=== PATIENT | female | born 1930 | race Caucasian/White ===

== ENCOUNTER 2017-03-31 14:28 | Inpatient (IN) | payer OTHER, MEDICAID ==
[2017-03-31] MEDS ORDERED: NS 1,000 ML IV ONE (14:39)
[2017-03-31] MEDS ORDERED: METOCLOPRAMIDE 10 MG/2 ML VIAL IVP ONE (14:39)
--- NOTE | 2017-03-31 14:41 | EDPHY ---
H & P Source: Patient, RN/MD, Sander [employer] (Kazakh) Exam Limitations: Language barrier Time Seen by Provider: 03/31/17 14:40 HPI/ROS: HPI: This is a 87-year-old female who presents with Chief Complaint: Epigastric pain Location: Epigastric Quality: Pain Duration: Today Signs and Symptoms: no fever, + nausea, + vomiting, no hematemesis, no blood in stool, + abdominal bloating, no diarrhea, no back pain, no urinary symptoms, no testicular/groin pain, no indigestion, no chest pain, no shortness of breath Timing: Acute Severity: [id number] Context: Patient presents via EMS from [facility] with concerns of pancreatitis after starting Januvia. Patient complains of sudden onset of nausea and multiple episodes of vomiting starting this morning. She has not eaten today. She reports she has a history of appendectomy but denies cholecystectomy even though there is surgical incision chavez in a Humza position that is highly suspicious for cholecystectomy. Denies diarrhea/fever/ chills/dysphagia. Modifying Factors: Received 100 mcg of fentanyl on route via EMS with complete relief of pain Comment: ROS: see HPI Constitutional: No fever, no chills, no weight loss Eyes: No blurred vision Respiratory: No shortness of breath, no cough Cardiovascular: No chest pain, no palpitations Gastrointestinal: + nausea, + vomiting, no diarrhea, no hematemesis, no blood in stool Genitourinary: No dysuria, no blood in urine Extremities: No myalgias, no edema Neurologic: No weakness, no numbness Skin: No rashes, no petechiae Hematologic: No bruising, no bleeding MEDICAL/SURGICAL/SOCIAL HISTORY: Medical history: Diabetes, hyperlipidemia, depression. Surgical history: Appendectomy Social history: Resident of a halfway. CONSTITUTIONAL: Elderly female, awake and alert, no obvious distress HEENT: Atraumatic and normocephalic, PERRL, EOMI. Tympanic membranes clear. Oropharynx clear, missing dentition, no exudate and moist pink mucosa. Airway patent. No lymphadenopathy. No meningismus. Cardiovascular: Normal S1/S2, regular rate, regular rhythm, without murmur rub or gallop. PULMONARY/CHEST: Symmetrical and nontender. Clear to auscultation bilaterally. Good air movement. No accessory muscle usage. ABDOMEN: Soft, moderately distended, moderate epigastric tenderness, no rebound , + guarding, no peritoneal signs, no masses or organomegaly. No CVAT. Hyperactive bowel sounds heard throughout. EXTREMITIES: 2/2 pulses, no deformities, no clubbing, no cyanosis or edema. NEUROLOGICAL: no focal neuro deficits. GCS 15. SKIN: Warm and dry, no erythema. no rash. Good capillary refill. (Emmy Reilly) Constitutional: Initial Vital Signs Temperature (C) 36.4 C 03/31/17 14:35 Heart Rate 75 03/31/17 14:35 Respiratory Rate 16 03/31/17 14:35 Blood Pressure 178/87 H 03/31/17 14:35 O2 Sat (%) 97 03/31/17 14:35 O2 Delivery Mode Room Air Allergies/Adverse Reactions: No Known Allergies Allergy (Verified 03/31/17 16:19) Home Medications: Medication Instructions Recorded Acetaminophen [Tylenol 325mg (*)] 650 mg PO Q4H PRN 03/31/17 Ammonium Lactate [Amlactin] 1 each TP DAILY 03/31/17 Aspirin EC [Aspirin EC 81 mg (*)] 81 mg PO DAILY 03/31/17 Bisacodyl [Dulcolax] 10 mg RC DAILY PRN 03/31/17 Ergocalciferol [Vitamin D2 (*)] 50,000 unit PO Q30D 03/31/17 Hydrocodone/Acetaminophen [[place] 1 each PO Q4 PRN 03/31/17 5/325 (*)] Hydrocodone/Acetaminophen [[place] 2 each PO Q4H PRN 03/31/17 5/325 (*)] Insulin 70/30 Human [Novolin 70/30 15 unit SC BID 03/31/17 (*)] Lidocaine 5% Gel 1 bria TP Q8H PRN 03/31/17 Losartan Potassium [Cozaar] 100 mg PO HS 03/31/17 Mbx Soln;Maalox/Diphen/Lido 5 ml PO TID PRN 03/31/17 [Maalox/Diphenhydramine/Lido] Phenylephrine/Shk Lv/Mo/Pet,Wh 1 bria RC Q4H PRN 03/31/17 [Preparation H Oint] Prochlorperazine Maleate 25 mg GA Q12H PRN 03/31/17 [Compazine 25mg supp (*)] SITAGLIPTIN PHOSPHATE [Januvia 50 50 mg PO DAILY 03/31/17 mg] amLODIPine BESYLATE [Norvasc 5 mg 5 mg PO DAILY 03/31/17 (*)] guaiFENesin/DEXTROMETHORPHAN 10 ml PO Q4H PRN 03/31/17 [Tussin Dm Syrup] Medical Decision Making - Diagnostics EKG Interpretation: 12 lead EKG: Indication: Abdominal pain Rhythm: Irregular rhythm, rate of 60 beats per minute [place]: Normal Intervals: Normal QRS: Normal ST segments: Nonspecific changes INTERPRETATION: No acute ischemic changes, LVH The 12 lead EKG was interpreted by myself and with attending. (Emmy Reilly) 12 lead EKG is interpreted in Trace master View by emergency department physician. (Hillary Garcia) Imaging Results: Imaging Impressions Abdomen CT 03/31/17 14:39 Impression: 1. Complex mass left lower pelvis that probably originates from the mid sigmoid colon with subsequent moderate obstruction of large bowel. This mass also invades locally to involve the distal small bowel loops with partial SBO as well as extending to the left superior margin of the bladder with invasion. 2. Complex collection left lower pelvis posterior to the above described mass. There is a chance this mass could be ovarian in origin with local invasion of structures. 3. Incidental calcified uterine fibroids. 4. Diffuse thinning of the renal cortex bilaterally. There is moderate renal artery stenosis suspected bilaterally. Findings discussed with Emmy Reilly PAC at 16:54 hour, 03/31/2017. ED Course/Re-evaluation: Labs, IV fluids, IV medications, urinalysis, CT abdomen and pelvis scan, Gastroccult, EKG ordered High suspicion for obstruction at this point Given 1 L normal saline, IV morphine, IV Reglan 1535: Lactic acid is 5.7; blood cultures and normal saline 30 mL/kg 1614: Troponin 0.14; repeat EKG ordered shows irregular rhythm 1655: Called by radiologist for CT scan results that show mass either arising from the sigmoid colon or from the left ovary with proximal obstruction. Reassessed patient and she is sleeping soundly secondary to IV fentanyl given by EMS on route 1700: ED decision to consult for admission, spoke with General surgery, Dr. Smith, who kindly agrees to admit patient for further care and likely impending surgery. (Emmy Reilly) I have evaluated and participated in the management of this patient. My co- signature indicates that I have reviewed this chart and that I agree with the findings and the plan of care as documented. My personal history and physical findings include: Patient has received pain medication at the time of my evaluation. Patient complains of nausea, vomiting, and abdominal pain that began this morning. On examination her abdomen is diffusely tender and distended. Lungs are clear to auscultation anterolaterally. Heart has the an irregular rhythm. CT scan shows an obstructing mass. Dr. Smith he will see patient in the emergency department. (Hillary Garcia) Differential Diagnosis: Abdominal pain including but not limited to small bowel obstruction, cholecystitis, gastritis and urinary tract infection. (Emmy Reilly) Critical Care Time: I spent a total of 35 minutes of critical care time in obtaining history, performing a physical exam, bedside monitoring of interventions, collecting and interpreting tests and discussion with consultants but not including time spent performing procedures. Dx: Bowel obstruction, elevated troponin (Emmy Reilly) - Data Points Laboratory Results: Laboratory Results 03/31/17 15:19 03/31/17 15:19 03/31/17 03/31/17 03/31/17 15:19 15:19 15:19 WBC 12.65 10^3/uL H 10^3/uL (3.80-9.50) RBC 4.84 10^6/uL 10^6/uL (4.18-5.33) Hgb 13.6 g/dL g/dL (12.6-16.3) Hct 41.9 % % (38.0-47.0) MCV 86.6 fL fL (81.5-99.8) MCH 28.1 pg pg (27.9-34.1) MCHC 32.5 g/dL g/dL (32.4-36.7) RDW 16.6 % H % (11.5-15.2) Plt Count 302 10^3/uL 10^3/uL (150-400) MPV 10.8 fL fL (8.7-11.7) Neut % (Auto) 75.7 % H % (39.3-74.2) Lymph % (Auto) 11.9 % L % (15.0-45.0) [place] % (Auto) 10.8 % % (4.5-13.0) Eos % (Auto) 0.7 % % (0.6-7.6) Baso % (Auto) 0.2 % L % (0.3-1.7) Nucleat RBC Rel Count 0.0 % % (0.0-0.2) Absolute Neuts (auto) 9.57 10^3/uL H 10^3/uL (1.70-6.50) Absolute Lymphs (auto) 1.50 10^3/uL 10^3/uL (1.00-3.00) Absolute Monos (auto) 1.37 10^3/uL H 10^3/uL (0.30-0.80) Absolute Eos (auto) 0.09 10^3/uL 10^3/uL (0.03-0.40) Absolute Basos (auto) 0.03 10^3/uL 10^3/uL (0.02-0.10) Absolute Nucleated RBC 0.00 10^3/uL 10^3/uL (0-0.01) Immature Gran % 0.7 % % (0.0-1.1) Immature Gran # 0.09 10^3/uL 10^3/uL (0.00-0.10) PT 14.9 SEC SEC (12.0-15.0) INR 1.17 H (0.83-1.16) APTT 26.4 SEC SEC (23.0-38.0) VBG Lactic Acid Sodium 145 mEq/L H mEq/L (134-144) Potassium 3.3 mEq/L L mEq/L (3.5-5.2) Chloride 103 mEq/L mEq/L (97-110) Carbon Dioxide 25 mEq/l mEq/l (22-31) Anion Gap 17 mEq/L H mEq/L (8-16) BUN 29 mg/dL H mg/dL (7-23) Creatinine 1.4 mg/dL H mg/dL (0.6-1.0) Estimated GFR 35 Glucose 223 mg/dL H mg/dL (70-100) Calcium 10.6 mg/dL H mg/dL (8.5-10.4) Total Bilirubin 0.8 mg/dL mg/dL (0.1-1.4) Conjugated Bilirubin 0.5 mg/dL mg/dL (0.0-0.5) Unconjugated Bilirubin 0.3 mg/dL mg/dL (0.0-1.1) AST 33 IU/L IU/L (14-46) ALT 23 IU/L IU/L (9-52) Alkaline Phosphatase 98 IU/L IU/L (38-126) Troponin I 0.141 ng/mL H ng/mL (0.000-0.034) Total Protein 8.1 g/dL g/dL (6.3-8.2) Albumin 4.1 g/dL g/dL (3.5-5.0) Lipase 65 IU/L IU/L (23-300) 03/31/17 15:19 WBC RBC Hgb Hct MCV MCH MCHC RDW Plt Count MPV Neut % (Auto) Lymph % (Auto) [place] % (Auto) Eos % (Auto) Baso % (Auto) Nucleat RBC Rel Count Absolute Neuts (auto) Absolute Lymphs (auto) Absolute Monos (auto) Absolute Eos (auto) Absolute Basos (auto) Absolute Nucleated RBC Immature Gran % Immature Gran # PT INR APTT VBG Lactic Acid 5.7 mmol/L H mmol/L (0.7-2.1) Sodium Potassium Chloride Carbon Dioxide Anion Gap BUN Creatinine Estimated GFR Glucose Calcium Total Bilirubin Conjugated Bilirubin Unconjugated Bilirubin AST ALT Alkaline Phosphatase Troponin I Total Protein Albumin Lipase Medications Given: Discontinued Medications Bacitracin (Bacitracin Syringe) Confirm Administered Dose 50,000 units IRR .STK- MED ONE Stop: 03/31/17 18:52 Last Admin: 03/31/17 20:24 Dose: Not Given Bupivacaine HCl (Sensorcaine 0.5% Vial) Confirm Administered Dose 30 ml .ROUTE .STK-MED ONE Stop: 03/31/17 18:52 Last Admin: 03/31/17 20:24 Dose: Not Given Sodium Chloride (Ns) 1,000 mls @ 0 mls/hr IV EDNOW ONE; Wide Open PRN Reason: Protocol Stop: 03/31/17 14:40 Last Admin: 03/31/17 15:58 Dose: 1,000 mls Sodium Chloride (Ns) 2,000 mls @ 4,000 mls/hr 30 ml/kg infuse over 30 min ( 2000 ml) IV EDNOW ONE PRN Reason: Protocol Stop: 03/31/17 17:01 Last Admin: 03/31/17 18:01 Dose: 2,000 mls Ertapenem 1 gm/ Sodium (Chloride) 100 mls @ 200 mls/hr IV ONCALL ONE Stop: 03/31/17 20:14 Last Admin: 03/31/17 20:10 Dose: 100 mls Metoclopramide HCl (Reglan Injection) 10 mg IVP EDNOW ONE Stop: 03/31/17 14:40 Last Admin: 03/31/17 15:56 Dose: 10 mg Morphine Sulfate (Morphine) 6 mg IVP EDNOW ONE Stop: 03/31/17 14:40 Last Admin: 03/31/17 18:42 Dose: 2 mg Polymyxin B Sulfate (Polymyxin B Syringe) Confirm Administered Dose 500,000 unit IRR .STK-MED ONE Stop: 03/31/17 18:52 Last Admin: 03/31/17 20:24 Dose: Not Given Departure - Departure Disposition: [facility] In[facility] Acute Clinical Impression: Mass of colon Bowel obstruction Qualifiers: Intestinal obstruction type: other intestinal obstruction Intestinal obstruction extent: complete Qualified Code(s): K56.691 - Other complete intestinal obstruction Condition: Fair
--- NOTE | 2017-03-31 15:34 | CPEKG ---
Heart Rate: 68 RR Interval: 882 QRSD Interval: 84 QT Interval: 440 QTC Interval: 469 QRS [place]: -2 T Wave [place]: 143 EKG Severity - ABNORMAL ECG - EKG Impression: ATRIAL FIBRILLATION, V-RATE 52-83 EKG Impression: PROBABLE LVH WITH SECONDARY REPOL ABNRM Electronically Signed By: Hillary Garcia 31-Mar-2017 23:02:56
[2017-03-31 15:35] LABS: % IMMATURE GRANULYOCYTES 0.7 % (0.0-1.1); ABSOLUTE IMMATURE GRANULOCYTES 0.09 10^3/uL (0.00-0.10); ADD DIFF? NO; ADD MORPH? NO; ADD SCAN? NO; ATYPICAL LYMPHOCYTE FLAG 30 (0-99); FRAGMENT RBC FLAG 0 (0-99); HEMATOCRIT 41.9 % (38.0-47.0); HEMOGLOBIN 13.6 g/dL (12.6-16.3); LEFT SHIFT FLG 0 (0-99); LIPEMIA HEMOLYSIS FLAG 80 (0-99); MEAN CELL HEMOGLOBIN 28.1 pg (27.9-34.1); MEAN CELL HEMOGLOBIN CONCENTR. 32.5 g/dL (32.4-36.7); MEAN CELL VOLUME 86.6 fL (81.5-99.8); MEAN PLATELET VOLUME 10.8 fL (8.7-11.7); PLATELET CLUMPS FLAG 0 (0-99); PLATELET COUNT 302 10^3/uL (150-400); RED BLOOD CELL COUNT 4.84 10^6/uL (4.18-5.33); RED CELL DISTRIBUTION WIDTH 16.6 % (11.5-15.2)
[2017-03-31 15:46] LABS: ALANINE AMINOTRANSFERASE 23 IU/L (9-52); ALBUMIN 4.1 g/dL (3.5-5.0); ALKALINE PHOSPHATASE 98 IU/L (38-126); ANION GAP 17 mEq/L (8-16); ASPARTATE AMINOTRANSFERASE 33 IU/L (14-46); BILIRUBIN,TOTAL 0.8 mg/dL (0.1-1.4); BILIRUBIN-CONJUGATED 0.5 mg/dL (0.0-0.5); BILIRUBIN-UNCONJUGATED 0.3 mg/dL (0.0-1.1); CALCIUM 10.6 mg/dL (8.5-10.4); CARBON DIOXIDE 25 mEq/l (22-31); CHLORIDE 103 mEq/L (97-110); CREATININE 1.4 mg/dL (0.6-1.0); GLOMERULAR FILTRATION RATE 35; GLUCOSE 223 mg/dL (70-100); POTASSIUM 3.3 mEq/L (3.5-5.2); SODIUM 145 mEq/L (134-144); TOTAL PROTEIN 8.1 g/dL (6.3-8.2)
[2017-03-31 15:47] LABS: APTT 26.4 SEC (23.0-38.0); INR 1.17 (0.83-1.16); PROTIME(PATIENT) 14.9 SEC (12.0-15.0)
[2017-03-31] MEDS ORDERED: IOPAMIDOL (ISOVUE-300) 100 ML BTL ONE (15:57)
[2017-03-31 15:58] LABS: TROPONIN I 0.141 ng/mL (0.000-0.034)
[2017-03-31] MEDS ORDERED: NS 2,000 ML IV ONE (16:32)
--- NOTE | 2017-03-31 16:58 | CPEKG ---
Heart Rate: 67 RR Interval: 896 QRSD Interval: 88 QT Interval: 424 QTC Interval: 448 QRS [place]: 13 T Wave [place]: 204 EKG Severity - ABNORMAL ECG - EKG Impression: ATRIAL FIBRILLATION, V-RATE 52-77 EKG Impression: REPOL ABNRM SUGGESTS ISCHEMIA, DIFFUSE LEADS Electronically Signed By: Hillary Garcia 31-Mar-2017 23:03:02
--- NOTE | 2017-03-31 18:36 | GHP ---
[f rep st] HISTORY AND PHYSICAL DATE OF ADMISSION: 03/31/2017 CHIEF COMPLAINT: Abdominal pain, distention, vomiting. PRESENT ILLNESS: The patient is a Finnish-speaking, 87-year-old female from a longterm with some degree of dementia. Much of the history is obtained from her daughter, as the patient is tangential with her response to questions. 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 Over the last 4 days, she has had some vomiting, increase in abdomina l girth and distention, and was brought to the hospital for evaluation. A CT scan shows a pelvic mas s likely involving small bowel and bladder but obstructing the colon at the sigmoid area with vilma co [place] proximal to this, and some small bowel dilatation possibly from the small bowel obstructing lesio n. No liver metastases are seen. There is uterus with a calcified fibroma. ALLERGIES: None. CURRENT MEDICATIONS: Insulin 70/30, 15 twice daily; Norvasc 5 mg p.o. daily; losartan 100 mg p.o. at bedtime; vitamin D; sitagliptin (otherwise known as Januvia) 50 mg p.o. daily. PREVIOUS SURGERIES: Open cholecystectomy. REVIEW OF SYSTEMS: Insulin-dependent diabetes, blind, atrial fibrillation, denies having had a heart attack. Review of systems otherwise negative. PHYSICAL EXAM: GENERAL: Elderly female, with some dementia, in moderate pain. Abdomen distended. HEENT: Poor dentition. NECK: Supple without adenopathy. No supraclavicular adenopathy. LUNGS: C lear. HEART: Irregular rhythm. No murmur. ABDOMEN: Distended. Healed right subcostal incision. No obvious hernias. EXTREMITIES: Unremarkable. NEUROLOGIC: Grossly unremarkable, other than the fact the patient is reportedly blind; acuity is not checked. CT scan is reviewed. LABORATORY: Reviewed, remarkable for potassium of 3.3. ASSESSMENT: An 87-year-old, insulin-dependent diabetic, with a mass which will likely prove to be un resectable. It is possible that the sigmoid lesion can be removed as well as the small bowel lesion, although I am unexcited about doing a partial bladder resection in this 87-year-old female, all of w hich is unlikely to be curative. She at least needs a diverting colostomy. I think an exploratory l aparotomy, and probably an end colostomy, will be in order. Other treatment options would be loop co lostomy or ileostomy. I have explained to her daughter that this is unlikely to be curative, and it may be the mass cannot be removed. Her mother is uncomfortable and they do not want to discuss simpl y palliative care at this time, so we will proceed for exploratory laparotomy, possible colostomy. R isks of anesthesia, wound infection, inability to cure her cancer, etc. were discussed with the luanne valero and she explained this to her mother in Finnish as best as possible. /[id number]/MODL
[2017-03-31] MEDS ORDERED: BUPIVACAINE 0.5% 30 ML SDV ONE (18:51)
[2017-03-31] MEDS ORDERED: BACITRACIN 50,000 UNITS/10 ML SYR IRR ONE (18:51)
[2017-03-31] MEDS ORDERED: POLYMYXIN B SULFATE 500,000 UNIT/10 ML SYR IRR ONE (18:51)
--- NOTE | 2017-03-31 19:21 | PDANEPAE ---
ANE Past Medical History - Cardiovascular History Hx Hypertension: Yes Hx Arrhythmias: Yes Hx Chest Pain: No Hx Coronary Artery / Peripheral Vascular Disease: No Hx CHF / Valvular Disease: No Hx Palpitations: Yes - Pulmonary History Hx COPD: No Hx Asthma/Reactive Airway Disease: No Hx Recent Upper Respiratory Infection: No Hx Oxygen in Use at Home: Yes O2 in Use at Home (L/minute): 2 Hx Sleep Apnea: No - Endocrine History Hx Diabetes: Yes Hypothyroid: No Hyperthyroid: No Obesity: yes, moderate ANE Review of Systems Review of Systems: ANE Patient History - Allergies Allergies/Adverse Reactions: No Known Allergies Allergy (Verified 03/31/17 16:19) - Home Medications Home Medications: Acetaminophen [Tylenol 325mg (*)] 650 mg PO Q4H PRN 03/31/17 [Last Taken Unknown ] Ammonium Lactate [Amlactin] 1 each TP DAILY 03/31/17 [Last Taken Unknown] Aspirin EC [Aspirin EC 81 mg (*)] 81 mg PO DAILY 03/31/17 [Last Taken Unknown] Bisacodyl [Dulcolax] 10 mg RC DAILY PRN 03/31/17 [Last Taken Unknown] Ergocalciferol [Vitamin D2 (*)] 50,000 unit PO Q30D 03/31/17 [Last Taken ] Hydrocodone/Acetaminophen [[place] 5/325 (*)] 1 each PO Q4 PRN 03/31/17 [Last Taken Unknown] Hydrocodone/Acetaminophen [[place] 5/325 (*)] 2 each PO Q4H PRN 03/31/17 [Last Taken Unknown] Insulin 70/30 Human [Novolin 70/30 (*)] 15 unit SC BID 03/31/17 [Last Taken Unknown] Lidocaine 5% Gel 1 bria TP Q8H PRN 03/31/17 [Last Taken Unknown] Losartan Potassium [Cozaar] 100 mg PO HS 03/31/17 [Last Taken Unknown] Mbx Soln;Maalox/Diphen/Lido [Maalox/Diphenhydramine/Lido] 5 ml PO TID PRN [Last Taken Unknown] Phenylephrine/Shk Lv/Mo/Pet,Wh [Preparation H Oint] 1 bria RC Q4H PRN 03/31/17 [ Last Taken Unknown] Prochlorperazine Maleate [Compazine 25mg supp (*)] 25 mg NM Q12H PRN 03/31/17 [ Last Taken Unknown] SITAGLIPTIN PHOSPHATE [Januvia 50 mg] 50 mg PO DAILY 03/31/17 [Last Taken Unknown] amLODIPine BESYLATE [Norvasc 5 mg (*)] 5 mg PO DAILY 03/31/17 [Last Taken Unknown] guaiFENesin/DEXTROMETHORPHAN [Tussin Dm Syrup] 10 ml PO Q4H PRN 03/31/17 [Last Taken Unknown] - Smoking Hx Smoking Status: Never smoked ANE Labs/Vital Signs - Labs Result Diagrams: 03/31/17 15:19 03/31/17 15:19 - Vital Signs Blood Pressure: 179/74 Heart Rate: 65 Respiratory Rate: 16 O2 Sat (%): 92 Height: 157.48 cm Weight: 65 kg ANE Physical Exam - Airway Neck exam: FROM Mallampati Score: Class 3 Mouth exam: dentures - Pulmonary Pulmonary: no respiratory distress - Cardiovascular Cardiovascular: regular rate and rhythym - ASA Status ASA Status: IV, E ANE Anesthesia Plan Anesthesia Plan: general endotracheal anesthesia
[2017-03-31] MEDS ORDERED: PROPOFOL 200 MG/20 ML VIAL ONE (19:25)
[2017-03-31] MEDS ORDERED: ROCURONIUM 50 MG/5 ML VIAL ONE ×2 (19:26→20:20)
[2017-03-31] MEDS ORDERED: SUGAMMADEX SODIUM 200 MG/2 ML VIAL IVP ONE (19:26)
[2017-03-31] MEDS ORDERED: ONDANSETRON 4 MG/2 ML VIAL ONE (19:26)
[2017-03-31] MEDS ORDERED: D50W 25 GM/50 ML SYR IVP PRN (19:42)
[2017-03-31] MEDS ORDERED: hydrALAZINE 20 MG/ML VIAL IVP PRN (19:43)
[2017-03-31] MEDS ORDERED: ERTAPENEM 1 GM in NS 100 ML IV ONE (19:45)
[2017-03-31] MEDS ORDERED: PHENYLEPHRINE HCL 100 MCG/ML SYR ONE (20:20)
[2017-03-31] MEDS ORDERED: ONDANSETRON 4 MG/2 ML VIAL IVP PRN ×2 (21:37→22:06)
[2017-03-31] MEDS ORDERED: LABETALOL HCL 50 MG/10 ML SYR IVP PRN (21:37)
[2017-03-31] MEDS ORDERED: PROMETHAZINE HCL 25 MG/ML INJ IVP PRN (21:37)
[2017-03-31] MEDS ORDERED: fentaNYL 100 MCG/2 ML INJ IVP PRN (21:37)
[2017-03-31] MEDS ORDERED: NALOXONE HCL 0.4 MG/ML INJ IVP PRN (21:37)
[2017-03-31] MEDS ORDERED: NS 500 ML IV PRN (21:37)
[2017-03-31] MEDS ORDERED: ENALAPRILAT DIHYDRATE 1.25 MG/ML VIAL IVP PRN (21:37)
[2017-03-31] MEDS ORDERED: LIDOCAINE 2% 5 ML SDV ONE ×2 (21:52)
--- NOTE | 2017-03-31 21:52 | GCON ---
[f rep st] CONSULTATION HOSPITALIST CONSULTATION REFERRING PHYSICIAN: Edenilson Smith MD REASON FOR CONSULTATION: Management of hypertension and diabetes. HISTORY OF PRESENT ILLNESS: This is an 87-year-old female with a history of dementia, blindness, typ e 2 diabetes, hypertension, atrial fibrillation, who resides at [facility] and was brought to the emergency department today due to nausea, vomiting and abdominal pain. The patient was seen with her daughter present, who tells me that she first threw up 4 days ago. She has not been eating much ove r the past few days and was brought to the emergency department after her symptoms seemed to be worse mica. She has not been having any diarrhea. She has not been noted to have any urinary symptoms. PAST MEDICAL HISTORY: 1. Insulin-dependent type 2 diabetes mellitus. 2. Hypertension. 3. Hyperlipidemia. 4. Dementia. 5. Blindness. 6. Atrial fibrillation, not anticoagulated due to fall risk. 7. Frequent falls. 8. Herpes zoster. 9. Glaucoma. 10. Cataracts. 11. Asthma. 12. Diastolic dysfunction with mild to moderate pulmonary hypertension. 13. History of anxiety and depression. PAST SURGICAL HISTORY: Appendectomy for perforated appendicitis in 1973. HOME MEDICATIONS: Reviewed. Refer to [facility] for details. ALLERGIES: No known drug allergies. SOCIAL HISTORY: The patient resides at [facility]. There is no history of alcohol, tobacco, or i llicit drug use. FAMILY HISTORY: Reviewed and noncontributory. REVIEW OF SYSTEMS: A comprehensive 10-point review of systems was attempted; however, this is not ve ry accurate due to the patient's dementia. PHYSICAL EXAMINATION: VITAL SIGNS: Blood pressure 179/74, pulse of 65, respiratory rate 16, O2 satu ration 92% on room air. Temperature afebrile. GENERAL: Ill-appearing. Appears to be uncomfortable . HEAD: Normocephalic, atraumatic. MOUTH: Moist mucous membranes. NECK: Supple. No lymphadenop athy. CARDIOVASCULAR: S1, S2. No JVD. No lower extremity edema. PULMONARY: Lungs are clear. No wheezes or rales. Diminished breath sounds in bilateral bases. ABDOMEN: Distended with diminished bowel sounds. There is no guarding or rebound. SKIN: Clear. No rashes. NEUROLOGIC: Exam was at tempted, but hard to do since patient is uncooperative and not following commands. DIAGNOSTICS: WBC is 12.6, hemoglobin 13.6, hematocrit 41.9, platelets 302. INR 1.17. Venous lactic acid was 5.7. Sodium 145, potassium 3.3, chloride 103, BUN 29, creatinine 1.4, glucose 223. Calciu m 10.6. Troponin was elevated at 0.141. CT of the abdomen was reviewed, showing a complex mass in t he left lower pelvis with subsequent bowel obstruction. Refer to report for full details. EKG: Atr ial fibrillation, rate 67 beats per minute, but no ST-segment elevation. ASSESSMENT AND PLAN: 1. This is an 87-year-old female with multiple medical problems, presenting with nausea and vomiting , found to have a pelvic mass likely involving the small bowel and bladder obstructing the colon at t he sigmoid area. I have been asked to consult on by Dr. Smith. Plan: The patient appears to be at high risk for surgery given her multiple medical comorbidities as well as mildly elevated troponi n. I will discuss this both with Dr. Smith and the patient's daughter, who seems to understand t he gravity of the situation. We will monitor the patient's troponins postoperatively and treat accor dingly. 2. History of insulin-dependent diabetes mellitus. Plan: Will treat with correctional insulin and continue her home insulin per her usual regimen and monitor for hypoglycemia. 3. History of hypertension with elevated systolic blood pressure, most likely due to pain. Plan: W ill continue to monitor blood pressure and treat accordingly. 4. The patient's daughter, who is her medical power of employment law attorney, does request that she be DNR status . The hospitalist service will continue to follow along with you. /[id number]/MODL
--- NOTE | 2017-03-31 22:06 | POSTOPPROG ---
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
--- NOTE | 2017-03-31 22:33 | POSTANESTH ---
Post Anesthetic Evaluation Cardiovascular Status: Similar to Pre-Op Cond Respiratory Status: Normal, Stable, Similar to Pre-op Cond. Level of Consciousness/Mental Status: Moderately Sleepy Pain Control: Adequate, Prn Tx Ordered Nausea/Vomiting Control: Adequate, Prn Tx Ordered Complications Possibly Related to Anesthesia: None Noted (Still sick; guarded prognosis even in the short term.)
--- NOTE | 2017-03-31 23:27 | GOP ---
[f rep st] OPERATIVE REPORT DATE OF OPERATION: SURGEON: Edenilson Smith MD BUSINESS OFFICE COORDINATOR: Arthur Vigil, CSFA, LSA PREOPERATIVE DIAGNOSIS: Obstructing sigmoid cancer. POSTOPERATIVE DIAGNOSIS: Obstructing sigmoid cancer. PROCEDURE PERFORMED: Sigmoid colectomy, colostomy, Irma's pouch, small bowel resection and anast omosis. FINDINGS: INDICATIONS: 87-year-old female from a detention, presents with abdominal distention, vomiting, C T scan showing obstructing mass in the sigmoid colon. DESCRIPTION OF PROCEDURE: General anesthetic. The abdomen scrubbed with ChloraPrep, draped in the u sual sterile fashion. Midline incision was made, brought around the right of the umbilicus. The abd omen was explored. The colon was grossly dilated all the way down to the sigmoid where a fixed mass was present encompassing small bowel and adherent to the bladder. The small bowel was sucked onto th is mass such that the proximal portion of small bowel was dilated suggesting imminent obstruction of this area as well as the colon obstruction. The area of small bowel was resected and a [id number] anastomosis done with a stapling device. Patent anastomosis could be palpated and the mesenteric def ect was closed with Vicryl sutures. With the small bowel packed out of the field, the sigmoid and le ft colon were mobilized along the white line of Toldt, and just above the palpable cancer, the colon was stapled off and the proximal portion was to be brought out as a colostomy. With the small bowel now out of the pelvis and the left colon packed somewhat cephalad, attention was paid to freeing up t he sigmoid cancer. This was firm and stuck to surrounding structures. Sharp and blunt dissection ev entually loosened up this and it was found to be perforated and contained on the bladder. This was c ompletely freed up so that normal rectum was identified and stapled off. It was felt likely that res idual tumor was present on the bladder, but given the gross bowel distention and reactive nature of a ll the peritoneal surfaces, no attempt was made to try to do a more radical resection on this 87-year -old diabetic female. With the specimen handed off the field, a #10 YVETTE drain was placed in the pelvis near the closed recta l stump and brought out on the right side. The abdomen was copiously irrigated with saline. Several liters used, all sucked out, and eventually the midline fascia closed with running #1 PDS from eithe r end and tied in the middle. Prior to this, the colostomy site was cut loose on the left lower quad rant through the rectus muscle and the left colon brought out through the defect. The colon sutured to the fascia with interrupted silk sutures. The midline fat was copiously irrigated with several li ters of saline again and then closed with stainless steel clips. The colostomy was then matured. A finger placed through the stoma easily into the abdomen. The colostomy was matured with 4-0 Vicryl an d a colostomy device placed around it. The skin was closed with stainless steel clips. A dressing a pplied. The patient tolerated the procedure well. /[id number]/MODL
[2017-04-01 05:23] LABS: % IMMATURE GRANULYOCYTES 0.6 % (0.0-1.1); ABSOLUTE IMMATURE GRANULOCYTES 0.05 10^3/uL (0.00-0.10); ADD DIFF? NO; ADD MORPH? NO; ADD SCAN? NO; ATYPICAL LYMPHOCYTE FLAG 0 (0-99); FRAGMENT RBC FLAG 0 (0-99); HEMATOCRIT 41.1 % (38.0-47.0); HEMOGLOBIN 13.3 g/dL (12.6-16.3); LEFT SHIFT FLG 90 (0-99); LIPEMIA HEMOLYSIS FLAG 80 (0-99); MEAN CELL HEMOGLOBIN 28.4 pg (27.9-34.1); MEAN CELL HEMOGLOBIN CONCENTR. 32.4 g/dL (32.4-36.7); MEAN CELL VOLUME 87.8 fL (81.5-99.8); MEAN PLATELET VOLUME 10.7 fL (8.7-11.7); PLATELET CLUMPS FLAG 0 (0-99); PLATELET COUNT 242 10^3/uL (150-400); RED BLOOD CELL COUNT 4.68 10^6/uL (4.18-5.33); RED CELL DISTRIBUTION WIDTH 16.7 % (11.5-15.2)
[2017-04-01 05:43] LABS: ANION GAP 6 mEq/L (8-16); CALCIUM 8.3 mg/dL (8.5-10.4); CARBON DIOXIDE 24 mEq/l (22-31); CHLORIDE 113 mEq/L (97-110); CREATININE 1.3 mg/dL (0.6-1.0); GLOMERULAR FILTRATION RATE 39; GLUCOSE 111 mg/dL (70-100); POTASSIUM 3.8 mEq/L (3.5-5.2); SODIUM 143 mEq/L (134-144)
[2017-04-01 05:54] LABS: TROPONIN I 0.261 ng/mL (0.000-0.034)
[2017-04-01] MEDS ORDERED: NS 500 ML IV ONE (06:33)
[2017-04-01] MEDS: LR 1,000 ML IV SCH ×2 (08:00→17:26)
[2017-04-01] MEDS ORDERED: ALTEPLASE 2 MG VIAL IVP PRN (08:56)
[2017-04-01] MEDS ORDERED: AMMONIUM LACTATE 12% 8 OZ LOTION TP SCH (09:00)
[2017-04-01] MEDS ORDERED: amLODIPine BESYLATE 5 MG TAB PO SCH (09:00)
[2017-04-01] MEDS ORDERED: ENOXAPARIN 30 MG/0.3 ML SYR SC SCH (09:00)
[2017-04-01] MEDS: INSULIN LISPRO 100 UNIT/ML SC SCH ×3 (09:04→18:32)
[2017-04-01] MEDS ORDERED: LIDOCAINE 1% 300 MG/30 ML SDV ONE (09:43)
--- NOTE | 2017-04-01 12:55 | GCON ---
[f rep st] CONSULTATION PULMONARY CRITICAL CARE CONSULTATION DATE OF CONSULTATION: 04/01/2017 REASON FOR CONSULTATION: Intensive care unit evaluation and medical management following emergent ab dominal surgery. HISTORY OF PRESENT ILLNESS: The patient is an 87-year-old woman with multiple medical problems, who presented to the hospital from [facility] yesterday with abdominal pain and nausea and vomiting. She was found to have an obstructive mass in the colon involving as well the small bowel and the blad aki. She was taken to the operating room, and surgery was performed. She was found to have extensiv e cancer related to the sigmoid colon. This was at least locally metastatic, involving the small bow el and bladder as well. A sigmoid colectomy and colostomy was done with a Irma's pouch. Small-b owel resection was also performed. The patient was returned postoperatively to the intensive care un it in stable condition. She was extubated postoperatively. She has borderline blood pressures, but is not currently on pressors. She only has one 22-gauge IV. A PICC line has been requested. She is receiving fluids, lactated Ringer's. PAST MEDICAL HISTORY: Remarkable for multiple medical problems, in addition to her advanced age. Aries greenberg has diabetes, insulin-dependent, systemic hypertension, and hyperlipidemia, dementia, blindness, ch ronic atrial fibrillation, which has not been anticoagulated secondary to frequent falling, reactive airways disease, diastolic dysfunction with pulmonary hypertension, anxiety and depression. SOCIAL HISTORY: The patient comes from [facility]. Alcohol and tobacco are negative. She grew u p in [place] and immigrated to the [place] as an adult. She is . She has a very supporti ve daughter who brought her here in 2008. There are no other children. She does have some sisters i [facility]. FAMILY HISTORY: Noncontributory. REVIEW OF SYSTEMS: Unobtainable at this time. By report, the patient is German-speaking primarily. ALLERGIES: None known. PHYSICAL EXAMINATION: GENERAL: Reveals an elderly woman who is in no obvious distress. VITAL SIGNS : Blood pressure is approximately 115/40, with an MAP of 65. Heart rate is 90, with atrial fibrilla tion on the monitor. Respiratory rate is 20. On 2 L, saturations are 97%. She is afebrile. Cardia c index by NICOM is 2.1, and she was not found to be volume responsive. A Person catheter is in place . She has little in the way of urine output. HEENT: Unremarkable for lymphadenopathy or thyromegaly. There is no obvious jugular venous distenti on. Cataracts noted. CHEST: Clear anteriorly. Breath sounds are diminished at both bases. There are no obvious wheezes, rales, or rhonchi. HEART: Irregular. There is a soft systolic murmur, no g allops. ABDOMEN: Postoperative. A colostomy is in place. There is some liquid stool in the colost valentina. Yoseph-Calderon drain with serosanguineous material is also present. EXTREMITIES: Unremarkable for significant edema. There are no obvious cords. NEUROLOGIC: Examination appears to be grossly n onfocal. She moves all extremities. NEUROLOGIC: Mental status appears to be intact. She is able t o respond weakly to some questions and commands. DATABASE: Chest x-ray shows hypoventilatory changes, without infiltrates, atelectasis or effusions. LABORATORY DATA: White blood cell count is 8000, hematocrit 41, platelets 242,000. PT and PTT were normal on admission. Venous lactate is 3.5. Sodium is 143, potassium 3.8, BUN 26, with a creatinine of 1.3. CO2 is 24, glucose 111. Calcium is 8.3. BNP nonspecifically elevated at 0.26. ASSESSMENT: 1. Status post sigmoid colectomy with small-bowel resection and colostomy with a Irma's pouch. The patient is doing well postoperatively. There is no evidence of significant blood loss or abdomin al complications at this point in time. She had no evidence of peritonitis at the time of surgery. She is on Invanz. 2. Sigmoid cancer. Prognosis would appear to be poor in this elderly woman with at least extensive localized disease, which could not be resected. 3. Hypotension. Blood pressures are borderline postoperatively. A PICC line has been requested. C entral line was attempted early this morning, but no venous access could be obtained. There is no ev idence of sepsis at this time. 4. History of multiple medical problems, including diabetes, hypertension, blindness, etc. 5. Advance directives: The patient was do not resuscitate on admission to the hospital and was ash siently full core secondary to surgery. Her daughter and POA requests that she now is again made do not resuscitate. I did have a long discussion with the patient's daughter this morning. It is uncle steve, in light of her mother's age and multiple medical problems, declining health over the last few ye ars, and now this extensive abdominal surgery and cancer, that she will want to continue aggressive s upportive care. She may want to transition to comfort care only. She is going to discuss this with her , her daughter, and the patient's sisters. A palliative care consultation may be indicate d. PLAN AND RECOMMENDATIONS: Current aggressive supportive care will be maintained for now. A PICC gerson e will be placed as soon as the IV team can do this. CVP will be monitored. Pressors will be initia gonzales if indicated. Intravenous fluids, crystalloid and colloid, will be continued. Antibiotics will be continued. Insulin will be given. Oral medications will currently be held. She is on prophylact ic enoxaparin. This will be continued. Pantoprazole will be added to her regimen. Further plans and recommendations will be made based on her progress over the next 12-24 hours. Lisa her discussions will be undertaken with the patient's daughter after she has had a chance to talk to additional family members and her . /[id number]/MODL
[2017-04-01] MEDS ORDERED: NS 1,000 ML IV ONE (13:00)
[2017-04-01 13:28] LABS: COLOR AMBER; LEUKOCYTE ESTERASE,URINE 2+ (NEGATIVE); NITRITE,URINE NEGATIVE (NEGATIVE)
[2017-04-01 13:32] LABS: MUCUS 1+ /lpf (NONE-1+); RBC,URINE 50-182 /hpf (0-3); WBC,URINE 50-182 /hpf (0-3)
--- NOTE | 2017-04-01 14:45 | HOSPPROG ---
Hospitalist Progress Note Assessment/Plan: * Obstructive colon mass with invasion SB and bladder -s/p Mera's pouch with colostomy 03/31 -incomplete resection - residual tumor remains -path pending * Severe sepsis - lactate not improving with IVF -IV Invanz * Acute respiratory failure s/p extubation * Advanced dementia - NH resident * DM -resume low dose insulin if glucose elevates, currently NPO * AFib -no anticoagulation due to frequent falls * Blind * HTN - hold meds Prognosis poor - advanced malignancy in a patient with underlying poor functional state - advanced dementia and NH resident. Per daughter patient is now DNR. They are considering further withdrawal of support. Consider hospice. Palliative care consult in am. Subjective: no new events Objective: Vital Signs Temp Pulse Resp BP Pulse Ox 37.2 C 88 23 H 92/41 L 95 04/01/17 08:04 04/01/17 12:00 04/01/17 12:00 04/01/17 12:00 04/01/17 12:00 Laboratory Results 04/01/17 05:05 04/01/17 05:05 03/31/17 04/01/17 04/02/17 05:59 05:59 05:59 Intake Total 2760 Output Total 1225 60 Balance 1535 -60 PT 14.9 SEC (12.0-15.0) 03/31/17 15:19 INR 1.17 (0.83-1.16) H 03/31/17 15:19 Laboratory Tests 03/31/17 04/01/17 04/01/17 15:19 08:53 13:00 VBG Lactic Acid 5.7 H 3.5 H D 4.3 H d/w Dr. Prakash - family considering comfort care only ABD CT - mass with encroachment into bladder and SB - Physical Exam Constitutional: no apparent distress, appears nourished, not in pain Cardiovascular: regular rate and rhythym, no murmur, rub, or gallop Respiratory: no respiratory distress, no rales or rhonchi, clear to auscultation Gastrointestinal: normoactive bowel sounds, soft, non-tender abdomen, no palpable masses Skin: no rashes or abrasions, no fluctuance, no induration Neurologic: No AAOx3 Psychiatric: encephalopathic, poor insight, poor judgement, poor memory, No agitated ICD10 Worksheet Patient Problems: Problems Problem Status Onset Bowel obstruction Acute Mass of colon Acute
[2017-04-01 18:26] LABS: CREATININE 1.8 mg/dL (0.6-1.0)
[2017-04-01 19:31] VITALS: TEMP 98.8
--- NOTE | 2017-04-01 19:41 | HOSPPROG ---
Hospitalist Progress Note Assessment/Plan: I called Dr. Smith per his request. The pt's has had minimal urine output all day. Per chart, it appears that comfort care and hospice may be followed tomorrow, but this decision is still pending. Until that decision is made, Dr. Smith is encouraging ton continue care including consideration of a renal consult. I discussed with the nurse and have ordered additional IVF as well as urine studies in the a.m. She report that family is expecting to transition to comfort care tomorrow morning. There is a palliative care consult for the morning. For now, pending the consultation in the a.m., I will hold off on renal consultation. Objective: Vital Signs Temp Pulse Resp BP Pulse Ox 37.1 C 106 H 23 H 104/43 L 98 04/01/17 19:08 04/01/17 19:08 04/01/17 19:08 04/01/17 19:08 04/01/17 19:08 Laboratory Results 04/01/17 05:05 04/01/17 17:56 03/31/17 04/01/17 04/02/17 05:59 05:59 05:59 Intake Total 2760 2551 Output Total 1225 295 Balance 1535 2256 PT 14.9 SEC (12.0-15.0) 03/31/17 15:19 INR 1.17 (0.83-1.16) H 03/31/17 15:19 ICD10 Worksheet Patient Problems: Problems Problem Status Onset Bowel obstruction Acute Mass of colon Acute
[2017-04-01] MEDS ORDERED: ERTAPENEM 1 GM in NS 100 ML IV SCH (20:00)
[2017-04-01] MEDS ORDERED: NS BOLUS 500 ML (Wide open) IV ONE (20:30)
[2017-04-01] MEDS ORDERED: LOSARTAN POTASSIUM 50 MG TAB PO SCH (21:00)
[2017-04-01] MEDS ORDERED: NOREPINEPHRINE/NS 500 ML IV SCH (21:30)
[2017-04-01] MEDS ORDERED: LORazepam 1 MG TAB PO PRN (22:20)
[2017-04-01] MEDS ORDERED: morphINE 10 MG/0.5 ML UDSYR PO PRN (22:20)
--- NOTE | 2017-04-01 22:28 | SOAPPROG ---
SOAP Progress Note Assessment/Plan: I met with the pt's daughter and her family. The the daughter is the POA. We reviewed the pt's clinical course and overall prognosis given her current clinical condition and severe sepsis. They have been thinking about transitioning to comfort care and given the pt's current clinical state, she is requesting transition to comfort care. She is in agreement with stopping the antibiotic as well as the pressors and she wants comfort to be the goal. They have already started making arrangements. comfort care order set ordered abx stopped pressors stopped labs stopped no further w/u Objective: Vital Signs Temp Pulse Resp BP Pulse Ox 37.1 C 106 H 23 H 104/43 L 98 04/01/17 19:08 04/01/17 19:08 04/01/17 19:08 04/01/17 19:08 04/01/17 19:08 Laboratory Results 04/01/17 05:05 04/01/17 17:56 03/31/17 04/01/17 04/02/17 05:59 05:59 05:59 Intake Total 2760 2551 Output Total 1225 295 Balance 1535 2256 PT 14.9 SEC (12.0-15.0) 03/31/17 15:19 INR 1.17 (0.83-1.16) H 03/31/17 15:19 ICD10 Worksheet Patient Problems: Problems Problem Status Onset Bowel obstruction Acute Mass of colon Acute
[2017-04-01] MEDS: LORazepam 2 MG/ML INJ IVP PRN (23:39)
[2017-04-02 00:20] VITALS: O2SAT 99
[2017-04-02] MEDS: LORazepam 2 MG/ML INJ IVP PRN (05:58)
--- NOTE | 2017-04-02 06:59 | SOAPPROG ---
SOAP Progress Note Assessment/Plan: Assessment: Plan: Subjective: pt obtunded Objective: pt develped anuria over past 24 hours, likely atn during surgery, although bp was in the 90's during surgery, pt's pre surgery bp was 190-200 pt has been made comfort care by tip, and dnr currently bp 68 systolic- expect pt will today or tomorrow. discussed situation with daughters. Vital Signs Temp Pulse Resp BP Pulse Ox 37.1 C 91 24 H 80/33 L 99 04/01/17 19:08 04/02/17 00:00 04/02/17 00:00 04/02/17 00:00 04/02/17 00:00 Laboratory Results 04/01/17 05:05 04/01/17 17:56 04/01/17 04/02/17 04/03/17 05:59 05:59 05:59 Intake Total 2760 3922 Output Total 1225 1500 Balance 1535 2422 PT 14.9 SEC (12.0-15.0) 03/31/17 15:19 INR 1.17 (0.83-1.16) H 03/31/17 15:19 ICD10 Worksheet Patient Problems: Problems Problem Status Onset Bowel obstruction Acute Mass of colon Acute
[2017-04-02] MEDS: INSULIN LISPRO 100 UNIT/ML SC SCH ×2 (07:21→08:29)
[2017-04-02 08:29] VITALS: BP 70/26; PULSE 103; RESP 35
[2017-04-02] MEDS ORDERED: D10W 250 ML PRN HYPOGLYCEMIA IV (10:00)
[2017-04-02] MEDS ORDERED: GLYCOPYRROLATE 0.2 MG/1 ML VIAL IVP PRN (13:14)
--- NOTE | 2017-04-02 13:14 | PDINTPN ---
Underground Heavy Equipment Operator Progress Note Assessment/Plan: Assessment: Status post extensive abdominal surgery for metastatic sigmoid carcinoma. This is in the setting of advanced age in multiple medical problems. The family has decided to go to comfort measures only. The patient appears comfortable, on appropriate medications. She can transfer out of the intensive care unit today. I do not expect her to necessarily pass away rapidly. Subjective: Appears comfortable, sleeping, not arousable. Objective: Vital Signs Temp Pulse Resp BP Pulse Ox 37.1 C 103 H 35 H 70/26 L 99 04/01/17 19:08 04/02/17 08:00 04/02/17 08:00 04/02/17 08:00 04/02/17 08:00 Laboratory Results 04/01/17 05:05 04/01/17 17:56 04/01/17 04/02/17 04/03/17 05:59 05:59 05:59 Intake Total 2760 3922 Output Total 1225 1500 Balance 1535 2422 PT 14.9 SEC (12.0-15.0) 03/31/17 15:19 INR 1.17 (0.83-1.16) H 03/31/17 15:19 Physical Exam - Physical Exam General Appearance: no apparent distress, other (O2 in place) Respiratory: lungs clear, decreased breath sounds Cardiac/Chest: tachycardia (Sinus) Abdomen: soft, other (Colostomy with output) Pelvic Exam: other (Person catheter with little urine output) Skin: warm/dry Neuro/Psych: cognition abnormalities (Of tended) ICD10 Worksheet Patient Problems: Problems Problem Status Onset Mass of colon Acute Bowel obstruction Acute
--- NOTE | 2017-04-02 15:39 | ASDISCHSUM ---
Discharge Information Plan Status: Medically Cleared to Leave: Discharge Date:04/02/2017 02:31 PM CM D/C Disposition: ADT D/C Disposition: Projected Discharge Date:04/02/2017 02:31 PM Transportation at D/C: Discharge Delay Reason: Follow-Up Date:04/02/2017 02:31 PM Discharge Slot: Final Diagnosis: Placement Information Patient Contact Information Contact Name:MIKALA Relationship:Daughter Address:[address] [place] [address] City:[place] [facility] Phone: State/Zip Code:[place] [address] Email: Financial Information Financial Class: Primary Plan Desc:MEDICARE INPATIENT Primary Plan Number:[id number] Secondary Plan Desc:MEDICA[place] Secondary Plan Number:[id number] Assessment Information Intervention Information
--- NOTE | 2017-04-02 18:18 | HOSPPROG ---
Hospitalist Progress Note Assessment/Plan: * Obstructive colon mass with invasion SB and bladder -s/p Mera's pouch with colostomy 03/31 -incomplete resection - residual tumor remains -path pending * Severe sepsis - lactate not improving with IVF -IV Invanz * Acute respiratory failure s/p extubation * Advanced dementia - [place] resident * DM -resume low dose insulin if glucose elevates, currently NPO * AFib -no anticoagulation due to frequent falls * Blind * HTN - hold meds Patient made comfort measures overnight. Expected to pass imminently. Continue morphine and ativan for comfort. Subjective: SBP 40s, unresponsive Objective: Vital Signs Temp Pulse Resp BP Pulse Ox 37.1 C 103 H 35 H 70/26 L 99 04/01/17 19:08 04/02/17 08:00 04/02/17 08:00 04/02/17 08:00 04/02/17 08:00 Laboratory Results 04/01/17 05:05 04/01/17 17:56 04/01/17 04/02/17 04/03/17 05:59 05:59 05:59 Intake Total 2760 3922 Output Total 1225 1500 Balance 1535 2422 PT 14.9 SEC (12.0-15.0) 03/31/17 15:19 INR 1.17 (0.83-1.16) H 03/31/17 15:19 - Physical Exam Constitutional: not in pain Cardiovascular: No edema Respiratory: respiratory distress Skin: mottled, No warm, No normal color Neurologic: No AAOx3 Psychiatric: encephalopathic, No interacting appropriately ICD10 Worksheet Patient Problems: Problems Problem Status Onset Bowel obstruction Acute Mass of colon Acute
--- NOTE | 2017-04-02 19:58 | GDS ---
[f rep st] DISCHARGE SUMMARY DATE OF : April 02, 2017. DIAGNOSES: 1. Obstructive colon mass with invasion of the small bowel and bladder, status post Irma's pouch and colostomy. 2. Severe sepsis. 3. Acute renal failure due to acute tubular necrosis. 4. Acute respiratory failure. 5. Advanced dementia. halfway resident. 6. Diabetes. 7. Atrial fibrillation. 8. Blindness. 9. Hypertension. HISTORY: The patient is an 87-year-old female retirement resident with advanced dementia and blind ness, who presented with an obstructive colon mass that was invading the small bowel and the bladder. She went to surgery and had a Irma's pouch with colostomy. She was initially stable and extuba gonzales, and had an okay blood pressure; however, her lactate was not clearing appropriately. It was emelina ar she was hypoperfused and eventually, she developed no urine output. She subsequently became progr essively more unstable and hypotensive. Her prognosis was poor, given this very large tumor and the fact that it was incompletely resected. Given her poor underlying functional state, it was clear thi s is not going to be a survival event for her. She was made DNR by her family and eventually, to [facility], where she passed comfortably earlier today. /[id number]/MODL
[2017-04-26] MEDS ORDERED: ERGOCALCIFEROL 50,000 I.UNIT CAP PO SCH (09:00)
== END 2017-04-02 14:31 | disposition expired | DRG 329 ==
LOC: EDUNIT# → F2N 22:10
PROVIDERS: ADMIT Surgery; ATTEND Surgery
DX: C18.7 Malignant neoplasm of sigmoid colon (principal); A41.9 Sepsis, unspecified organism; R65.20 Severe sepsis without septic shock; N17.0 Acute kidney failure with tubular necrosis; J96.00 Acute respiratory failure, unspecified whether with hypoxia or hypercapnia; F03.90 Unspecified dementia, unspecified severity, without behavioral disturbance, psychotic disturbance, mood disturbance, and anxiety; I48.91 Unspecified atrial fibrillation; I10 Essential (primary) hypertension; E11.39 Type 2 diabetes mellitus with other diabetic ophthalmic complication; H54.8 Legal blindness, as defined in USA; Z66 Do not resuscitate; Z51.5 Encounter for palliative care; Z79.4 Long term (current) use of insulin
CPT/HCPCS: 96374; C1751; J1335; J1650; J2060; J2370; J2405; J2704; J2765; Q9967